=== PATIENT | female | born 1995 | race Caucasian/White ===

== ENCOUNTER 2020-06-19 20:02 | Emergency (ER) | payer MEDICAID, OTHER ==
[~2020-06-19] VITALS: Ht 165.1 cm; Wt 57.0 kg
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
--- NOTE | 2020-06-19 21:29 | NUR ---
MRI SCREENING TOOL COMPLETED AND FAXED
[2020-06-19 23:24] VITALS: BP 105/65
--- NOTE | 2020-06-19 23:24 | NUR ---
PT RETURNED FROM MRI. NAD NOTED. DENIES NEED FOR PAIN MEDICATIONS.
--- NOTE | 2020-06-20 00:28 | NUR ---
DC EDUCATION PROVIDED, PT DEMONSTRATES UNDERSTANDING. PT DRESSED SELF FROM GURNEY AND TRANSFERRED SELF SLOWLY TO WHEELCHAIR AT BEDSIDE. WHEELED TO DC WITH RN. FRIEND TO TRANSPORT PT HOME.
== END 2020-06-20 00:31 | disposition home or self-care (01) ==
LOC: ED 21:40
DX: G44.209 Tension-type headache, unspecified, not intractable (principal); R53.1 Weakness; I51.7 Cardiomegaly; R20.2 Paresthesia of skin
CPT/HCPCS: 70551; 72148; 93005; 99285